=== PATIENT | female | born 2000 | race Caucasian/White ===

== ENCOUNTER 2018-02-07 11:43 | Emergency (ER) | payer BC ==
[~2018-02-07] VITALS: Ht 162.6 cm; Wt 60.8 kg
[2018-02-07 11:47] VITALS: BP 116/69; Ht 162.6 cm; Wt 60.8 kg
[2018-02-07 13:33] LABS: AMPHETAMINE QUAL UR POSITIVE (See below)
== END 2018-02-07 13:06 | disposition left against medical advice (07) ==
LOC: ED 11:43
PROVIDERS: Emergency Medicine
DX: F15.10 Other stimulant abuse, uncomplicated (principal)
CPT/HCPCS: 87491; 87591; G0480